=== PATIENT | female | born 1985 | race Asian ===

== ENCOUNTER 2019-08-20 01:56 | Emergency (ER) | payer MEDICAID, OTHER ==
[~2019-08-20] VITALS: Ht 154.9 cm; Wt 52.9 kg
[~2019-08-20 01:56] MED LIST: HYDR-3980 PO; IBUP800T48 PO; NEOM28OI2 TP; ONDA4TAB14 PO
[2019-08-20 01:59] VITALS: Ht 154.9 cm; Wt 52.9 kg
[2019-08-20] MEDS ORDERED: SOD CHLORIDE 0.9% 500 ML IV STA (02:22)
[2019-08-20] MEDS ORDERED: morphine 4 MG/ML VIAL IV ONE (02:30)
[2019-08-20] MEDS ORDERED: ONDANSETRON 4 MG INJ IV ONE (02:30)
[2019-08-20] MEDS ORDERED: NEOMYC/POLYMYX/BACIT 0.9 GM OINT TOP ONE (02:30)
[2019-08-20] MEDS ORDERED: DIPHTH/TET/ACEL PERTUSS (ADULT) 0.5 ML VIAL IM* ONE (02:30)
[2019-08-20] MEDS ORDERED: KETOROLAC 15 MG INJ IV STA (03:45)
[2019-08-20 04:10] VITALS: BP 126/84; PULSE 51; RESP 18
== END 2019-08-20 04:25 | disposition home or self-care (01) ==
LOC: E/R 01:56
DX: T22.211A Burn of second degree of right forearm, initial encounter (principal); T21.21XA Burn of second degree of chest wall, initial encounter; F17.210 Nicotine dependence, cigarettes, uncomplicated; X12.XXXA Contact with other hot fluids, initial encounter; Y92.9 Unspecified place or not applicable; Z23 Encounter for immunization
CPT/HCPCS: 16020; 90471; 90715; 96374; 96375; J1885; J2270; J2405; J7040; Z7502; Z7610